=== PATIENT | female | born 1985 | race Caucasian/White ===

== ENCOUNTER 2020-09-14 08:43 | Outpatient (CLI) | payer OTHER, SELFPAY ==
--- NOTE | ~2020-09-14 | CT_ITS ---
EXAMINATION: CT soft tissue neck w con DATE: 09/14/2020 09:22 INDICATION: Paralysis of left vocal cord. TECHNIQUE: Computed tomography (CT) of the neck was performed with 75 mL Omnipaque-350 intravenous co ntrast. Automated exposure control and iterative reconstruction technique were employed. The dose-rebecca gth product was 531.05 mGy-cm. COMPARISON: None FINDINGS: There is a 4 mm nodule in right thyroid lobe, likely not clinically significant. There are no pathologically enlarged lymph nodes. There are small calcifications in the left palatine tonsil. T he cervical carotid arteries and vertebral arteries are normal. There is multilevel mild facet joint osteoarthritis and the spine. IMPRESSION: 1. No etiology for vocal cord paralysis. Reviewed, dictated and finalized at location A. STAMPER
== END 2020-09-14 08:44 | disposition home or self-care (01) ==
DX: J38.01 Paralysis of vocal cords and larynx, unilateral (principal)
CPT/HCPCS: 70491; Q9967